=== PATIENT | female | born 1990 | race Caucasian/White ===

== ENCOUNTER 2024-10-01 07:37 | Emergency (ER) | payer MEDICAID, OTHER ==
[~2024-10-01] VITALS: Ht 165.1 cm; Wt 74.5 kg
[2024-10-01 08:13] VITALS: BP 147/88; PULSE 100; RESP 18; TEMP 98.3; O2SAT 96
[2024-10-01] MEDS: cefTRIAXone SOD 1,000 MG VL IM ONE (08:24)
[2024-10-01] MEDS: CLINDAMYCIN HCL 150 MG CAP PO ONE (08:24)
--- NOTE | 2024-10-01 09:35 | ED.PDOC ---
History of Present Illness(SKN HPI Comments 34 year old female presents to the ED with chief complaint of insect bite. Patient reports that she has been experiencing localized redness and swelling to her left forearm since yesterday afternoon, worsening over time. Patient relays that there is a centralized bite shay which she believes was caused by an insect. Patient states the redness has started to streak up her arm with associated chest pain, nausea, vomiting, and lightheadedness. Patient denies any numbness, weakness, fever, or chills. Chief Complaint: Insect Bite Time Seen by MD: 08:00 Primary Care Provider: NONE History of Present Illness: Nurses Notes, Medications, Allergies Allergies: Coded Allergies: NO KNOWN ALLERGIES (Unverified , 10/01/24) Information Source: Patient Mode of Arrival: Ambulatory Severity: Moderate Timing: Days Duration: Since onset Prehospital treatment: None Location: Arm Mechanism: Preceding Wound, Insect Developed: Rash Object: None Condition of Object: None Retained Foreign Body: No Wound Type: Abscess Immunization Status of Animal: NA Tetanus: Unknown Associated Signs and Symptoms: Redness, Swelling, Red Streaking, Pain Past Medical History PAST MEDICAL HISTORY: Denies Surgical History: Denies all surgeries SENIOR HEALTH EDUCATOR History: No Pertinent SENIOR HEALTH EDUCATOR History Family History Family History: Reviewed,noncontributory to illness Social History Smoker: Cigarettes Alcohol: Denies ETOH Use Drugs: Denies Drug Use Lives In: Home Constitutional: denies: chills, diaphoresis, fatigue, fever, malaise, sweats, weakness, others EENTM: denies: blurred vision, double vision, ear bleeding, ear discharge, ear drainage, ear pain, ear ringing, eye pain, eye redness, hearing loss, mouth pain, mouth swelling, nasal discharge, nose bleeding, nose congestion, nose pain, photophobia, tearing, throat pain, throat swelling, voice changes, others Respiratory: denies: cough, hemoptysis, orthopnea, SOB at rest, shortness of breath, SOB with excertion, stridor, wheezing, others Cardiovascular: denies: chest pain, dizzy spells, diaphoresis, Dyspnea on exertion, edema, irregular heart beat, left arm pain, lightheadedness, palpitations, PND, syncope, others Gastrointestinal: denies: abdomen distended, abdominal pain, blood streaked bowels, constipated, diarrhea, dysphagia, difficulty swallowing, hematemesis, melena, nausea, poor appetite, poor fluid intake, rectal bleeding, rectal pain, vomiting, others Genitourinary: denies: abnormal vagina bleeding, burning, dyspareunia, dysuria, flank pain, frequency, hematuria, incontinence, pain, , vagina discharge, urgency, others Neurological: denies: dizziness, fainting, headache, left sided numbness, left sided weakness, numbness, paresthesia, pre-existing deficit, right sided numbness, right sided weakness, seizure, speech problems, tingling, tremors, weakness, others Musculoskeletal: denies: back pain, gout, joint pain, joint swelling, muscle pain, muscle stiffness, neck pain, others Integumetry: reports: rash (Left forearm redness and swelling with red streaking); denies: bruises, change in color, change in hair/nails, dryness, laceration, lesions, lumps, wounds, others Allergic/Immunocompromised: denies: Difficulty Healing, Frequent Infections, Hives, Itching, others Hematologic/Lymphatic: denies: anemia, blood clots, easy bleeding, easy bruising, swollen glands, others Endocrine: denies: excessive hunger, excessive sweating, excessive thirst, excessive urination, flushing, intolerance to cold, intolerance to heat, unexplained weight gain, unexplained weight loss, others Psychiatric: denies: anxiety, bipolar disorder, depression, hopeless, panic disorder, schizophrenia, sleepless, suicidal, others All Other Systems: Reviewed and Negative Physical Exam General Appearance: Moderate Distress, Normal HEENT: Normal ENT Inspection, PERRL/EOMI Neck: Full Range of Motion, Non-Tender, Normal, Normal Inspection Respiratory: Chest Non-Tender, Lungs Clear, No Accessory Muscle Use, No Respiratory Distress, Normal Breath Sounds Cardiovascular: No Edema, No JVD, No Murmur, No Gallop, Normal Peripheral Pulses, Regular Rate/Rhythm Breast Exam: Deferred Gastrointestinal: No Organomegaly, Non Tender, No Pulsatile Mass, Normal Bowel Sounds, Soft Genitalia: Deferred Pelvic: Deferred Rectal: Deferred Extremities: No calf tenderness, Normal capillary refill, Normal inspection, Normal range of motion, Non-tender, No pedal edema Musculoskeletal : Apperance: Normal Neurologic: Alert, window cleaner II-XII nml as Tested, No Motor Deficits, Normal Affect, Normal Mood, No Sensory Deficits Cerebellar Function: Normal Reflexes: Normal Skin: Dry, Normal Color, Warm, Other (Mild redness left forearm) Peripheral Pulses: 3+ Radial (R), 3+ Radial (L) Lymphatic: No Adenopathy Was a procedure done? Was a procedure done?: No Differential Diagnosis (INTG) Differential Diagnosis: Cellulitis, Insect Envenomation X-Ray, Labs, Meds, VS Vital Signs Date Time Temp Pulse Resp B/P (MAP) Pulse Ox O2 Delivery O2 Flow Rate FiO2 10/01/24 08:13 100 18 96 Room Air 10/01/24 08:13 98.3 100 18 147/88 (107) 96 98.3 10/01/24 07:50 98.3 100 18 147/88 (107) 96 Current Medications Medications (Trade) Dose Ordered Sig/Gauri Route Start Time Stop Time Status Last Admin Ceftriaxone Sodium (Rocephin) 1,000 mg ONCE ONCE IM 10/01/24 08:15 10/01/24 08:16 DC 10/01/24 08:24 Clindamycin HCl (Cleocin Capsule) 300 mg ONCE ONCE PO 10/01/24 08:15 10/01/24 08:16 DC 10/01/24 08:24 Patient alert. Mild redness left forearm. Vitals stable. Answering all questions. Redness 2 cm x 2 cm. Was given Rocephin. Was given clindamycin. Explained to the patient. No swelling a forearm. No leg swelling. Saturation pristine on room air. She is anxious. On examination heart rate within normal limits. Was given prescription of amoxicillin clindamycin antibiotic. Explained to the patient. Was told to follow up with her primary care physician. Was told to come back if there is any problem. Time of 1ST Reevaluation: 09:00 Reevaluation 1ST: Improved Patient Education/Counseling: Diagnosis, Treatment Family Education/Counseling: No Family Present Departure 1 Departure Time of Disposition: 09:46 Impression: Primary Impression: Cellulitis Qualified Codes: L03.114 - Cellulitis of left upper limb Disposition: HOME / SELF CARE / HOMELESS Condition: Good e-Prescriptions Clindamycin Hcl (Clindamycin Hcl) 300 Mg Cap 1 CAP PO TID for 7 Days, #21 CAP Prov: AMEYA SORIANO MD 10/01/24 Amoxicillin Trihydrate (Amoxicillin) 500 Mg Cap 1 CAP PO TID for 10 Days, #30 CAP Prov: AMEYA SORIANO MD 10/01/24 Discharged With: Self Critical Care Note Critical Care Time?: No Stability Stability form required: No Heart Score Heart Score: Heart Score Response (Comments) Value History N/A 0 EKG N/A 0 Age N/A 0 Risk Factors N/A 0 Troponin N/A 0 Total 0 I personally scribed for AMEYA SORIANO MD ([email or web address]) on 10/01/24 at 09:35. Electronically submitted by Vic Sue ([email or web address]). AMEYA SORIANO MD Oct 01, 2024 09:35
[2024-10-01] MEDS ORDERED: CLIN1CAP70 PO (09:48)
[2024-10-01] MEDS ORDERED: AMOX500C2 PO (09:48)
== END 2024-10-01 09:56 | disposition home or self-care (01) ==
LOC: ER 07:37
DX: L03.114 Cellulitis of left upper limb (principal); F17.210 Nicotine dependence, cigarettes, uncomplicated
CPT/HCPCS: 96372; 99283; J0696